=== PATIENT | female | born 2000 | race Caucasian/White ===

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

== ENCOUNTER 2019-08-01 20:58 | Emergency (ER) | payer OTHER, SELFPAY ==
[~2019-08-01] VITALS: Ht 162.6 cm; Wt 60.3 kg
[2019-08-01 22:57] VITALS: Ht 162.6 cm; Wt 60.3 kg
[2019-08-02 00:36] VITALS: BP 118/74
== END 2019-08-02 00:36 | disposition home or self-care (01) ==
LOC: ED 20:58
DX: B34.9 Viral infection, unspecified (principal); Z20.828 Contact with and (suspected) exposure to other viral communicable diseases
CPT/HCPCS: Q0092; U0003-CS

== ENCOUNTER 2019-08-22 19:55 | Emergency (ER) | payer MEDICAID ==
[~2019-08-22] VITALS: Ht 162.6 cm; Wt 61.7 kg
[2019-08-22 20:02] VITALS: Ht 162.6 cm; Wt 61.7 kg
[2019-08-22 20:33] LABS: BASOPHIL % 0.4 % (0-2); PLATELET COUNT 183 x10^3mcL (130-400)
[2019-08-22 20:37] LABS: AMPHETAMINE QUAL UR NONE DETECTED (See below)
[2019-08-22 21:06] LABS: CALCIUM 8.8 mg/dL (8.5-10.1); CARBON DIOXIDE 21.1 mmol/L (21-32); CHLORIDE SERUM 104 mmol/L (98-107); CREATININE SERUM 0.8 mg/dL (0.6-1.0); GFR1 > 60 mL/min; GLUCOSE SERUM 98 mg/dL (74-106); POTASSIUM SERUM 3.4 mmol/L (3.5-5.1); SODIUM SERUM 140 mmol/L (136-145)
[2019-08-22 21:11] LABS: ALKALINE PHOSPHATASE 60 U/L (46-116); ALT/SGPT 15 U/L (14-59); AST/SGOT 10 U/L (15-37); BILIRUBIN TOTAL 1.1 mg/dL (0.20-1.00); TOTAL PROTEIN, SERUM 7.8 g/dL (6.4-8.2)
[2019-08-22 21:23] VITALS: BP 100/54
== END 2019-08-22 21:23 | disposition home or self-care (01) ==
LOC: ED 19:55
PROVIDERS: Emergency Medicine
DX: F41.9 Anxiety disorder, unspecified (principal)
CPT/HCPCS: J7030; Q0092